=== PATIENT | female | born 1940 | race Caucasian/White ===

== ENCOUNTER 2018-05-20 13:20 | Observation (INO) | payer MEDICARE, OTHER ==
[2018-05-20] VITALS (9 sets, daily range): BP systolic 113–127; BP diastolic 49–59; PULSE 69–80; TEMP 97.8–98.8
[~2018-05-20] VITALS: Ht 162.6 cm; Wt 78.2 kg
[2018-05-20] MEDS ORDERED: PRAVACHOL80 MG PO (13:40)
[2018-05-20] MEDS ORDERED: ZIAC 2.5/6.25MG1 TAB PO (13:41)
[2018-05-20] MEDS ORDERED: ROBAXIN 50500 MG/TAB PO (13:42)
[2018-05-20] MEDS ORDERED: SYNTHROID0.1 MG/TAB PO (13:42)
[2018-05-20] MEDS ORDERED: TAGAMET400 MG PO (13:42)
[2018-05-20] MEDS ORDERED: ASPIRIN E.C. 8181 MG PO (13:43)
[2018-05-20] MEDS ORDERED: CALCIUM CITRAT950 MG PO (13:44)
[2018-05-20] MEDS ORDERED: FISH OIL 1000MG1 CAP PO (13:44)
[2018-05-20] MEDS ORDERED: VITAMIN C500 MG PO (13:45)
[2018-05-20] MEDS ORDERED: VITAMIN E 400 U4001 PO (13:45)
[2018-05-20] MEDS ORDERED: MASON NATURAL2000 IU PO (13:46)
[2018-05-20] MEDS ORDERED: MAGNESIUM200 MG PO (13:47)
[2018-05-20] MEDS ORDERED: BENADRYL25 M2 PO (13:48)
[2018-05-20] MEDS ORDERED: MULTIPLE VITAMI1 CAP PO (13:48)
[2018-05-20] MEDS ORDERED: TYLENOL 500MG500 MG PO (13:49)
[2018-05-20 13:58] LABS: COLLECTION METHOD CLEAN CATCH
[2018-05-20 14:06] LABS: MUCOUS Present /lpf; PH 5 (5-8); URINE APPEARANCE Cloudy; URINE BACTERIA Many /hpf; URINE BILIRUBIN Negative (NEGATIVE); URINE BLOOD 2+ (NEGATIVE); URINE COLOR Amber; URINE GLUCOSE Negative (NEGATIVE); URINE KETONE Negative (NEGATIVE); URINE LEUKOCYTE ESTERASE Negative (NEGATIVE); URINE NITRATE Positive (NEGATIVE); URINE PROTEIN(semi-quant) Negative (NEGATIVE); URINE RBC 20-50 /hpf; URINE UROBILINOGEN Negative (NEGATIVE)
[2018-05-20 14:16] LABS: HEMATOCRIT 41.3 % (37.0-47.0); HEMOGLOBIN 14.2 g/dl (12.5-16.0); MEAN CELL VOLUME 101 fl (80.0-100.0); MEAN CORPUSCULAR HEMOGLOBIN 35 pg (27.0-31.0); MEAN CORPUSCULAR HGB CONC 34 g/dl (33.0-37.0); MEAN PLATELET VOLUME 9.2 fl (7.4-10.4); PLATELET COUNT 138 K/mm3 (130-400); REDCELL DISTRIBUTION WIDTH-CV 13.2 % (11.5-14.5)
[2018-05-20 14:31] LABS: ALANINE AMINOTRANSFERASE 23 U/L (9-52); ALBUMIN 3.9 gm/dL (3.5-5.0); ALKALINE PHOSPHATASE 64 U/L (50-136); ANION GAP 11 mmol/L (7-16); AST,SGOT 28 U/L (15-37); BLOOD UREA NITROGEN 16 mg/dL (7-17); CALCIUM 9.7 mg/dL (8.4-10.2); CARBON DIOXIDE 23 mmol/L (22-30); CHLORIDE 100 mmol/L (98-107); CREATININE, serum 1.02 mg/dL (0.52-1.25); GLUCOSE 134 mg/dL (74-106); LIPASE 70 U/L (23-300); POTASSIUM 3.8 mmol/L (3.4-5.0); SODIUM 135 mmol/L (137-145); TOTAL PROTEIN 7.2 gm/dL (6.4-8.2)
[2018-05-20 14:40] LABS: BAND 16 % (0-10); LYMPHOCYTE 9 % (20.0-51.0); NEUTROPHILS 74 % (42.0-75.2); PLATELET ESTIMATE DECREASED (NORMAL)
[2018-05-20 14:43] LABS: C-REACTIVE PROTEIN 20.2 mg/dL (0.0-0.9); TROPONIN-I < 0.012 ng/mL (0.000-0.034)
[2018-05-21 03:56] VITALS: BP 108/50; PULSE 69; TEMP 97.7
[2018-05-21 07:34] VITALS: BP 117/50; PULSE 68; TEMP 97.9
[2018-05-21] MEDS ORDERED: ZETIA 10MG TAB10 MG PO (12:34)
[2018-05-21 12:45] VITALS: BP 125/63; PULSE 77; TEMP 98
[2018-05-21 16:35] VITALS: BP 130/60; PULSE 62; TEMP 98.2
[2018-05-21 19:16] VITALS: BP 107/55; PULSE 71; TEMP 97.5
[2018-05-22 00:18] VITALS: BP 123/59; PULSE 70; TEMP 98
[2018-05-22 03:21] VITALS: BP 136/57; PULSE 69; TEMP 98.2
[2018-05-22 08:13] VITALS: BP 107/42; PULSE 81; TEMP 98.9
== END 2018-05-22 11:50 | disposition home or self-care (01) ==
LOC: COL.ER 13:20 → SURG 16:38
PROVIDERS: Emergency Medicine
DX: K80.12 Calculus of gallbladder with acute and chronic cholecystitis without obstruction (principal); E78.5 Hyperlipidemia, unspecified; E03.9 Hypothyroidism, unspecified; E86.0 Dehydration; K21.9 Gastro-esophageal reflux disease without esophagitis; M19.90 Unspecified osteoarthritis, unspecified site; I12.9 Hypertensive chronic kidney disease with stage 1 through stage 4 chronic kidney disease, or unspecified chronic kidney disease; N18.9 Chronic kidney disease, unspecified; Z90.710 Acquired absence of both cervix and uterus; Z85.828 Personal history of other malignant neoplasm of skin; Z79.82 Long term (current) use of aspirin; Z88.2 Allergy status to sulfonamides; Z88.1 Allergy status to other antibiotic agents
CPT/HCPCS: A9284; G0378; J1100; J2250; J2405; J2543; J2704; J2710; J3010; J7030; J7120; Q9967